=== PATIENT | female | born 1980 | race African-American/Black ===

== ENCOUNTER 2021-12-06 09:09 | Emergency (ER) | payer OTHER, SELFPAY ==
[2021-12-06 09:22] VITALS: BP 154/117; PULSE 100; RESP 19; TEMP 36.6; O2SAT 100; BMI 34.5
[2021-12-06] MEDS: Ondansetron ODT 4 MG TAB.RAPDIS TRANSLINGU (10:24)
--- NOTE | 2021-12-06 10:30 | PC.NURSE ---
triage note : patient reports asthma as medical dx. psych dx: ptsd, WING, bipolar, disassociative identity d/o, reports pfizer vaccine hx, reports no menses X 5yrs (IUD), reports +hx of self harming (and soon after interview requested band aid to cover area where she had been scratching. reports three identified voices she hears reports no command hallucinations (as far as content)
[2021-12-06 10:37] VITALS: BP 172/100; PULSE 96; RESP 18; O2SAT 100
[2021-12-06 10:45] LABS: MANUAL DIFF FLAG NO
[2021-12-06 10:47] LABS: Basophils Percent Auto 0.4 % (0-2); Eosinophils Absolute Auto 0.2 X10*3/uL (0.0-0.4); Eosinophils Percent Auto 1.9 % (0-4); Hematocrit 39.1 % (37.0-47.0); Hemoglobin 13.2 g/dl (12.0-16.0); Imm Gran Abs Auto 0.04 X10*3/uL (0.00-0.03); Imm Gran Pct Auto 0.5 % (0.0-0.4); Lymphocytes Absolute Auto 2.8 X10*3/uL (1.2-4.9); Lymphocytes Percent Auto 34.5 % (20-40); Mean Corpuscular HGB Conc 33.8 g/dl (31.0-35.0); Mean Corpuscular Hemoglobin 30.5 pg (27.0-33.0); Mean Corpuscular Volume 90.3 fL (80.0-98.0); Mean Platelet Volume 9.3 fL (9.4-12.3); Monocytes Absolute Auto 0.5 X10*3/uL (0.1-1.2); Monocytes Percent Auto 5.6 % (2-11); Neutrophils Absolute Auto 4.6 x10*3/uL (2.0-8.3); Neutrophils Percent Auto 57.1 % (45-73); Platelet Count 351 X10*3/uL (160-400); Red Blood Count 4.33 X10*6/uL (4.20-5.50)
[2021-12-06 10:47] LABS: Appearance Urine CLEAR; Color Urine STRAW; Glucose Urine UA NEG (NEG); Leukocyte Esterase Urine NEG (NEG); Nitrite Urine NEG (NEG); Specific Gravity - Urine 1.015 (1.005-1.025); UACC Culture Trigger NO; Urine Blood 2+ (NEG); Urine Ketones NEG (NEG); Urine Protein NEG (NEG-TRACE)
[2021-12-06 10:48] LABS: UPreg QC Valid YES; Urine Pregnancy NEGATIVE (NEGATIVE)
[2021-12-06 10:59] LABS: COVID-19 Test Negative (Negative)
[2021-12-06 11:10] LABS: Mucus Urine TRACE /LPF; Squamous Epithelial Cell Urine 4+ /LPF; WBC Urine 0 /HPF (0-4)
[2021-12-06 11:12] LABS: Alanine Aminotransferase 17 U/L (0-31); Albumin Level 4.5 g/dL (3.5-5.0); Alkaline Phosphatase 112 U/L (39-117); Anion Gap 12 (12-20); Aspartate Amino Transferase 17 U/L (5-31); Bilirubin Total 0.2 mg/dL (0.0-1.0); Blood Urea Nitrogen 10 mg/dL (9-16); Carbon Dioxide 27 mmol/L (22-29); Chloride 105 mmol/L (96-108); Creatinine Clr Calc Pharmacy 101.2; Estimated Glomerular Filt Rate > 60; Glucose Fasting 110 mg/dL (60-99); Potassium 4.2 mmol/L (3.3-5.1); Sodium 140 mmol/L (135-145); Total Protein 7.7 g/dL (6.5-8.0)
[2021-12-06 11:13] LABS: Amphetamine Screen Urine Not Detected (Not Detect); Barbiturates, Urine Not Detected (Not Detect); Benzodiazepines Screen Urine POSITIVE (Not Detect); Cannabinoid Screen Urine Not Detected (Not Detect); Cocaine Screen Urine Not Detected (Not Detect); Fentanyl, urine Not Detected (Not Detect); Opiate Screen Urine Not Detected (Not Detect); Phencyclidine Screen Urine Not Detected (Not Detect)
--- NOTE | 2021-12-06 11:44 | ED.GENADULT ---
HPI - General Adult General Chief complaint: Psychiatric Symptoms Stated complaint: vomiting crisis Time Seen by Provider: 12/06/21 09:56 Source: patient Mode of arrival: ambulatory Limitations: no limitations History of Present Illness HPI narrative: Patient is a 41 year old female presenting to the emergency department today with nausea, vomiting, and hearing voices. Patient states that she believes the nausea and vomiting is secondary to stress because she recently had a psych medication change. Patient denies feeling suicidal but states she does not feel safe. Patient denies any dizziness, lightheadedness, abdominal pain, fever, chills, blurry vision, double vision, loss of vision, chest pain, difficulty breathing, shortness of breath, back pain, night sweats, pain with urination, increased urinary frequency, increased urinary urgency, blood in her urine or stool, syncope or a near syncopal episode, recent trauma or falls, bowel incontinence, bladder incontinence, bowel retention, bladder retention, or any other complaints at this time. Onset (ago): day(s) Relieving factors: none Exacerbating factors: other (stress and anxiety) Associated symptoms: nausea/vomiting Related Data Home Medications Medication Instructions Recorded Confirmed diazepam 5 mg tablet 5 mg PO BID PRN 04/30/21 gabapentin 250 mg/5 mL (5 mL) oral 300 mg PO BID 04/30/21 solution lamotrigine 200 mg tablet 200 mg PO DAILY 04/30/21 melatonin 5 mg capsule 5 mg PO DAILY cap 04/30/21 olanzapine 5 mg tablet 5 mg PO BEDTIME 04/30/21 prazosin 2 mg capsule 2 mg PO BEDTIME 04/30/21 prazosin 5 mg capsule 5 mg PO BEDTIME 04/30/21 quetiapine 400 mg tablet 400 mg PO BID 04/30/21 sertraline 100 mg tablet 100 mg PO DAILY 04/30/21 Allergies Allergy/AdvReac Type Severity Reaction Status Date / Time aspirin AdvReac Unknown Hives Verified 04/30/21 09:23 Review of Systems Constitutional: Constitutional: Reports no additional constitutional complaints, Denies chills, Denies fever(s) and Denies night sweats Eyes: Eyes: Reports no additional eye complaints, Denies blurry vision, Denies change in vision, Denies diplopia, Denies eye discharge, Denies loss of vision and Denies eye pain ENT: Denies dizziness Cardiovascular: Cardiovascular: Reports no additional cardiovascular complaints, Denies chest pain, Denies lightheadedness, Denies Loss of Consciousness and Denies dyspnea Respiratory: Respiratory: Reports no additional respiratory complaints and Denies dyspnea Gastrointestinal: Gastrointestinal: Reports no additional gastrointestinal complaints, Denies abdominal pain, Denies melena, Denies hematochezia, Denies change in bowel habits, Denies change in stool character, Reports nausea and Reports vomiting Genitourinary: Genitourinary: Denies hematuria, Denies urinary frequency, Denies dysuria, Denies urinary incontinence, Denies urinary hesitancy and Denies urinary urgency Musculoskeletal: Musculoskeletal: Reports no additional musculoskeletal complaints, Denies numbness and Denies tingling Neurologic: Denies dizziness, Denies loss of vision, Denies numbness and Denies tingling Psychiatric: Psychiatric: Reports no additional psychiatric complaints and Reports anxiety Endocrine: Endocrine: Reports no additional endocrine complaints Hematologic/Lymphatic: Hematologic/Lymphatic: Reports no additional hematologic/lymphatic complaints Allergic/Immunologic: Allergic/Immunologic: Reports no additional allergic/immunologic complaints PMFSH Past Medical History Attestation statement: The following information was validated with the patient. Source: old records reviewed Medical History Anxiety Bipolar 1 disorder Borderline schizophrenia Dissociative identity disorder PTSD (post-traumatic stress disorder) Surgical History Hx of carpal tunnel repair Hx of thyroidectomy Family History Family History Mother Stroke Heart disease Hypertension Breast cancer Heart attack Father Lung disease Sister Gastric bypass status for obesity Heart attack Hypertension Sleep apnea Sister FHx: mental illness Son No problems noted. Son No problems noted. Son No problems noted. Social History Social History Alcohol intake: former Tobacco use type: Cigarette Cigarette Packs Per Day: 1 Advance Directives: No Advance Directives Information Provided: No Patient : No Physical Exam ED Vital Signs: Vital Signs - 24 hr 12/06/21 09:22 12/06/21 10:37 Temperature 98 F Pulse Rate 100 96 Respiratory Rate 19 18 Blood Pressure 154/117 H 172/100 H Pulse Oximetry 100 100 BMI result Body Mass Index 34.5 Const General: cooperative, no acute distress, alert and awake Nutritional Appearance: well nourished Orientation/consciousness: patient oriented x3 Limitations: no limitations HENMT Head: Yes normal to inspection and Yes atraumatic Ears: hearing grossly normal bilaterally and external ears normal General nose exam: Normal external nose present, no nasal discharge noted and no epistaxis Face and sinus: Yes normal facial exam, No abrasion and No laceration Mouth: Normal oral and palatal mucosa present, no drooling and no muffled voice Eyes General: appearance normal, both eyes and all related structures Periorbital: periorbital findings normal Eyelids: Yes eyelids normal Conjunctivae: conjunctivae normal Pupils: Equal, round and reactive pupils present EOM: EOMs intact bilaterally Neck Neck: Yes normal visual inspection, Yes full ROM and Yes no lymphadenopathy Chest Chest palpation & inspection: normal inspection of the chest Resp Effort & Inspection: normal respiratory effort and able to speak in complete sentences GI Inspection: Yes normal to inspection Neuro General: patient oriented x3 and moves all extremities Cranial nerves: Yes Equal, round and reactive pupils present Cognition (Neuro): normal cognition Motor exam (neuro): 5/5 motor strength present throughout Sensory Exam: Normal double simultaneous stimulation for sensation Coordination: [id number] test normal Extrem General: Yes normal to inspection, Yes full ROM and Yes capillary refill normal Psych Appearance: grossly normal Mental Status: mental status grossly normal Affect: Anxious affect present Attitude: cooperative Thought process: Normal thought process present Thought content: Normal thought content present Insight: Good insight present (Psych) Course Consultations Consultation #1: Spoke to [facility] who recommended the patient be discharged with close follow up tomorrow with [facility]. She states the patient is now stating she feels safe at home, lives with her sister, and has no acess to sharp objects at home. Time: 14:11 Medical Decision Making [facility] Narrative Medical decision making narrative: Patient is a 41 year old female presenting to the emergency department today with nausea and vomiting secondary to anxiety. Patient's physical exam was unremarkable. Patient's blood work was unremarkable. I explained my physical exam findings as well as all test results to the patient. I answered all questions asked by the patient. Patient received ODT Zofran which she stated helped her symptoms significantly. Patient was seen by [facility] who recommended the patient be discharged and follow up on an outpatient basis. I stressed the importance of the patient taking her medication as prescribed. I stressed the importance of the patient following up with her primary care provider. I stressed the importance of the patient returning to the emergency department immediately if her symptoms were to worsen or if she were to develop any dizziness, shortness of breath, difficulty breathing, chest pain, blurry vision, loss of vision, nausea, vomiting, abdominal pain, fever, chills, back pain, or any other complaints. Patient verbalized agreement and understanding with this treatment plan and discharge. Differential Diagnosis Differential Diagnosis: Nausea, vomiting, anxiety, panic attack Medical Records Medical records reviewed: Yes I reviewed the patient's medical records. Lab Data Lab results reviewed: Yes I reviewed the patient's lab results. Result diagrams: 12/06/21 10:40 12/06/21 10:39 Labs: Lab Results 12/06/21 12/06/21 12/06/21 Range/Units 10:30 10:30 10:31 WBC (4.8-10.8) X10*3/uL RBC (4.20-5.50) X10*6/uL Hgb (12.0-16.0) g/dl Hct (37.0-47.0) % MCV (80.0-98.0) fL MCH (27.0-33.0) pg MCHC (31.0-35.0) g/dl RDW (11.0-16.0) % Plt Count (160-400) X10*3/uL MPV (9.4-12.3) fL Immature Gran % (Auto) (0.0-0.4) % Neut % (Auto) (45-73) % Lymph % (Auto) (20-40) % [place] % (Auto) (2-11) % Eos % (Auto) (0-4) % Baso % (Auto) (0-2) % Lymph # (Auto) (1.2-4.9) X10*3/uL [place] # (Auto) (0.1-1.2) X10*3/uL Eos # (Auto) (0.0-0.4) X10*3/uL Baso # (Auto) (0.0-0.2) X10*3/uL Abs Immat Gran (auto) (0.00-0.03) X10*3/uL Absolute Neuts (auto) (2.0-8.3) x10*3/uL Absolute Nucleated RBC (0.0-0.012) X10*3/uL Nucleated RBC % (auto) (0.0-0.2) /100WBC Sodium (135-145) mmol/L Potassium (3.3-5.1) mmol/L Chloride (96-108) mmol/L Carbon Dioxide (22-29) mmol/L Anion Gap (12-20) BUN (9-16) mg/dL Creatinine (0.5-1.4) mg/dL Estim Creat Clear Calc Estimated GFR Fasting Glucose (60-99) mg/dL Calcium (8.4-10.2) mg/dL Magnesium (1.6-2.6) mg/dL Total Bilirubin (0.0-1.0) mg/dL AST (5-31) U/L ALT (0-31) U/L Alkaline Phosphatase (39-117) U/L Total Protein (6.5-8.0) g/dL Albumin (3.5-5.0) g/dL Urine Color STRAW Urine Appearance CLEAR Urine pH 6.0 (5.0-8.0) Ur Specific Severy 1.015 (1.005-1.025) Urine Protein NEG (NEG-TRACE) MG/DL Urine Glucose (UA) NEG (NEG) MG/DL Urine Ketones NEG (NEG) MG/DL Urine Blood 2+ H (NEG) Urine Nitrite NEG (NEG) Ur Leukocyte Esterase NEG (NEG) Urine RBC 5-9 H (0) /HPF Urine WBC 0 (0-4) /HPF Ur Squamous Epith Cells 4+ /LPF Urine Bacteria NONE /LPF Urine Mucus TRACE /LPF Urine Test NEGATIVE (NEGATIVE) Urine Opiates Screen (Not Detect) Urine Fentanyl Screen (Not Detect) Ur Barbiturates Screen (Not Detect) Ur Phencyclidine Scrn (Not Detect) Ur Amphetamines Screen (Not Detect) U Benzodiazepines Scrn (Not Detect) Urine Cocaine Screen (Not Detect) U Marijuana (THC) Screen (Not Detect) COVID-19 ([place]) Negative (Negative) COVID-19 Clin Com See Note 12/06/21 12/06/21 12/06/21 Range/Units 10:31 10:39 10:40 WBC 8.0 (4.8-10.8) X10*3/uL RBC 4.33 (4.20-5.50) X10*6/uL Hgb 13.2 (12.0-16.0) g/dl Hct 39.1 (37.0-47.0) % MCV 90.3 (80.0-98.0) fL MCH 30.5 (27.0-33.0) pg MCHC 33.8 (31.0-35.0) g/dl RDW 13.0 (11.0-16.0) % Plt Count 351 (160-400) X10*3/uL MPV 9.3 L (9.4-12.3) fL Immature Gran % (Auto) 0.5 H (0.0-0.4) % Neut % (Auto) 57.1 (45-73) % Lymph % (Auto) 34.5 (20-40) % [place] % (Auto) 5.6 (2-11) % Eos % (Auto) 1.9 (0-4) % Baso % (Auto) 0.4 (0-2) % Lymph # (Auto) 2.8 (1.2-4.9) X10*3/uL [place] # (Auto) 0.5 (0.1-1.2) X10*3/uL Eos # (Auto) 0.2 (0.0-0.4) X10*3/uL Baso # (Auto) 0.0 (0.0-0.2) X10*3/uL Abs Immat Gran (auto) 0.04 H (0.00-0.03) X10*3/uL Absolute Neuts (auto) 4.6 (2.0-8.3) x10*3/uL Absolute Nucleated RBC 0.000 (0.0-0.012) X10*3/uL Nucleated RBC % (auto) 0.0 (0.0-0.2) /100WBC Sodium 140 (135-145) mmol/L Potassium 4.2 (3.3-5.1) mmol/L Chloride 105 (96-108) mmol/L Carbon Dioxide 27 (22-29) mmol/L Anion Gap 12 (12-20) BUN 10 (9-16) mg/dL Creatinine 0.88 (0.5-1.4) mg/dL Estim Creat Clear Calc 101.2 Estimated GFR > 60 Fasting Glucose 110 H (60-99) mg/dL Calcium 10.0 (8.4-10.2) mg/dL Magnesium 2.0 (1.6-2.6) mg/dL Total Bilirubin 0.2 (0.0-1.0) mg/dL AST 17 (5-31) U/L ALT 17 (0-31) U/L Alkaline Phosphatase 112 (39-117) U/L Total Protein 7.7 (6.5-8.0) g/dL Albumin 4.5 (3.5-5.0) g/dL Urine Color Urine Appearance Urine pH (5.0-8.0) Ur Specific Severy (1.005-1.025) Urine Protein (NEG-TRACE) MG/DL Urine Glucose (UA) (NEG) MG/DL Urine Ketones (NEG) MG/DL Urine Blood (NEG) Urine Nitrite (NEG) Ur Leukocyte Esterase (NEG) Urine RBC (0) /HPF Urine WBC (0-4) /HPF Ur Squamous Epith Cells /LPF Urine Bacteria /LPF Urine Mucus /LPF Urine Test (NEGATIVE) Urine Opiates Screen Not Detected (Not Detect) Urine Fentanyl Screen Not Detected (Not Detect) Ur Barbiturates Screen Not Detected (Not Detect) Ur Phencyclidine Scrn Not Detected (Not Detect) Ur Amphetamines Screen Not Detected (Not Detect) U Benzodiazepines Scrn POSITIVE H (Not Detect) Urine Cocaine Screen Not Detected (Not Detect) U Marijuana (THC) Screen Not Detected (Not Detect) COVID-19 ([place]) (Negative) COVID-19 Clin Com Discharge Plan Discharge Clinical Impression: Bipolar disorder, Depression, Dissocial personality disorder Patient Disposition: Home, Self-Care Referrals: Ofe Hatfield MD [Primary Care Provider] - 2 days Interventions: ED Discharge Assessment Last Done: 12/06/21 14:25 Discharge Date/Time: 12/06/21 14:26 Print Language: Setswana
[2021-12-06] MEDS: Acetaminophen 325 MG TABLET 650 MG PO (12:02)
== END 2021-12-06 14:26 | disposition home or self-care (01) ==
PROVIDERS: Physician Assistant Medical; Emergency Provider Emergency Medicine Emergency Medical Services; PCP Internal Medicine
DX: F31.9 Bipolar disorder, unspecified (principal); F44.81 Dissociative identity disorder; Z20.822 Contact with and (suspected) exposure to COVID-19; R11.2 Nausea with vomiting, unspecified; F41.9 Anxiety disorder, unspecified; F21 Schizotypal disorder; F43.10 Post-traumatic stress disorder, unspecified; Z79.899 Other long term (current) drug therapy
CPT/HCPCS: 36415; 80053; 80307; 81001; 81025; 83735; 85025; 87635; 99284

== ENCOUNTER → 2023-01-05 10:49 | Outpatient (BNVA) | payer OTHER, SELFPAY | PROVIDERS: PCP Internal Medicine; Visit Provider Nurse Practitioner Family | DX: G43.109 Migraine with aura, not intractable, without status migrainosus (principal); G24.3 Spasmodic torticollis; R20.2 Paresthesia of skin; M54.2 Cervicalgia; G47.9 Sleep disorder, unspecified | CPT/HCPCS: 99202 ==

== ENCOUNTER → 2023-01-25 10:52 | Outpatient (BNVA) | payer OTHER, SELFPAY | PROVIDERS: PCP Internal Medicine; Visit Provider Nurse Practitioner Family | DX: G43.109 Migraine with aura, not intractable, without status migrainosus (principal) | CPT/HCPCS: 99211 ==

== ENCOUNTER 2023-04-08 09:13 | Outpatient (REF) | payer SELFPAY ==
--- NOTE | 2023-04-08 | EMG_ITS ---
FINDINGS: Bilateral median and ulnar motor and sensory studies were performed. Bilateral radial sensory studies were performed and paraspinal muscles were tested with a needle. IMPRESSION: 1. Mild bilateral median neuropathy across carpal tunnel. 2. Mild bilateral ulnar neuropathy across cubital tunnel. MD BEKAH Carcamo/LOYD / [phone]
== END 2023-04-08 09:14 | disposition home or self-care (01) ==
LOC: HO.NEURO 09:13
PROVIDERS: PCP Internal Medicine; Visit Provider Nurse Practitioner Family
DX: M54.2 Cervicalgia (principal); R20.2 Paresthesia of skin; G24.3 Spasmodic torticollis
CPT/HCPCS: 95886; 95911

== ENCOUNTER 2023-07-21 09:27 | Outpatient (AMB) | payer OTHER, SELFPAY ==
[2023-07-21 09:29] VITALS: BP 144/90; BMI 33.0
--- NOTE | 2023-07-21 09:29 | A.OFFVIS_ITS ---
Intake Vital Signs 07/21/23 09:29 Height 5 ft 7 in Weight 211 lb BMI 33.0 BP 144/90 H Blood Pressure Location Rt brachial Position Sitting Intake Visit Reasons: 2m follow up migraine-Confirmed Intake Note: Patient presents for 2 month follow up. Patient states My headaches are still the same I have a headache now. I'm still not sleeping. Allergies aspirin Adverse Reaction (Unknown, Verified 07/21/23 09:32) Hives bee stings Allergy (Unknown, Uncoded 07/21/23 09:32) Unknown Medication List - Last Reconciled 07/21/23 by MIGUEL Willard acetaminophen 1,000 mg (2 x 500 mg) PO Q6H PRN 30 days amitriptyline 75 mg PO BEDTIME diazepam 5 mg PO BID PRN gabapentin 300 mg PO BID galcanezumab-gnlm (Emgality Pen) 120 mg subcut ONCE 28 days lamotrigine 200 mg PO BID methocarbamol 1,000 mg PO BID olanzapine 5 mg PO BEDTIME omeprazole 20 mg PO QAM prazosin 5 mg PO BEDTIME prazosin 25 mg PO BEDTIME quetiapine 400 mg PO BID riboflavin (vitamin B2) 400 mg PO DAILY 30 days rizatriptan 0 mg PO sumatriptan succinate 50 - 100 mg orally at onset of headache, may repeat in 2 hrs PRN; max 2 tabs per day or 4 tabs/week (may take with Tylenol) 30 days trazodone 100 mg PO BEDTIME PRN HPI HPI Comments History of Present Illness Details 43-yr-old female presents for f/u visit. Pt reports that despite starting and being consistent w/ Emgality, she continues to have never daily migraine headaches. Headaches- Left or right sided- Pounding, throbbing, aching. Usually a/w blurry vision, vertical diplopia (w/wo headache), Photophobia, phonophobia, nausea, some allodynia, dizziness (tunnel vision), brain fog, hands and feet numbness tingling and right handed jumping/jerking (can occur w/wo headaches but worse w/ headache), agitation if more severe. No autonomic or focal weakness. Sumatriptan was unhelpful. Today, notes she has tried Rizatriptan prior but this did not help. She continues to have sleep difficulties- difficulty falling asleep, staying asleep, sleep eating, sleep talking, sleep paralysis. Was started on Trazodone 100mg qhs which has not helepd sleep (has not affected headaches either) She continues to have BUE hand tingling. BUE EMG/NCS was c/w mild BUE carpal tunnel and ulnar neuropathies. She does have a hx of carpal tunnel repair through [facility]. 04/08/23, BUE EMG/NCS IMPRESSION: 1. Mild bilateral median neuropathy acro ss carpal tunnel. 2. Mild bilateral ulnar neuropathy acros s cubital tunnel. [facility] Medical History Anemia Anxiety Asthma Bipolar 1 disorder Borderline schizophrenia Dissociative identity disorder HLD (hyperlipidemia) PTSD (post-traumatic stress disorder) Surgical History Hx of carpal tunnel repair Hx of thyroidectomy Family History Mother Stroke Heart disease Hypertension Breast cancer Heart attack CAD (coronary artery disease) Hyperlipidemia Father Lung disease Hypertension Hyperlipidemia COPD (chronic obstructive pulmonary disease) Sister Gastric bypass status for obesity Heart attack Hypertension Sleep apnea Sister FHx: mental illness Son No problems noted. Son No problems noted. Son No problems noted. Brother Diabetes Social History Alcohol intake: former Patient Tobacco Use Status: Current everyday Tobacco user Tobacco use type: Cigarette Cigarette Packs Per Day: 1 Review of Systems Const All systems reviewed & are unremarkable except as noted in HPI and below Physical Exam Vital Signs: Last Vital Signs BP 144/90 H 07/21/23 09:29 BMI result Body Mass Index 33.0 Const General: cooperative and no acute distress Orientation/consciousness: patient oriented x3 HEENT Head: Yes normocephalic Resp Effort & Inspection: normal respiratory effort and able to speak in complete sentences Neuro General: patient oriented x3, gait normal and CN's II-XI intact bilaterally Cognition (Neuro): normal cognition Motor exam (neuro): 5/5 motor strength present throughout Psych Appearance: grossly normal Mental Status: mental status grossly normal Speech and movement: Normal speech and movement present Affect: normal affect Attitude: cooperative Thought process: Normal thought process present Thought content: Normal thought content present Insight: Good insight present (Psych) Judgement: Good judgement present (Psych) Assessment & Plan Assessment & Plan (1) Parasomnia: Code(s): G47.50 - Parasomnia, unspecified (2) Excessive daytime sleepiness: Code(s): G47.19 - Other hypersomnia (3) Snoring: Code(s): R06.83 - Snoring (4) Sleep walking and eating: Code(s): F51.3 - Sleepwalking [somnambulism] (5) Sleep difficulties: Code(s): G47.9 - Sleep disorder, unspecified (6) Paresthesias: Comment: BUE and BLE Code(s): R20.2 - Paresthesia of skin (7) Bilateral carpal tunnel syndrome: Code(s): G56.03 - Carpal tunnel syndrome, bilateral upper limbs (8) Ulnar neuropathy of both upper extremities: Code(s): G56.23 - Lesion of ulnar nerve, bilateral upper limbs (9) Chronic migraine without aura: Code(s): G43.709 - Chronic migraine without aura, not intractable, without status migrainosus Plan Reviewed BUE EMG/NCS- mild BUE carpaul tunnel and ulnar neuropathy. Will refer pt back to [facility]. L-spine X-ray- note done yet- pt to do when able. Monitor tremor/blinking. Future considerations: BLE EMG/NCS, further l-spine work-up. ? For sleep difficulties- Pt advised to undergo HST to assess for sleep apnea. Would hold Trazodone- not effective. Start Topiramate 25-50mg qhs- may help sleep, sleep eating as well. She may benefit from listening to CBTi resources such as the [employer] podcast. ? For acute headache treatment: Stop Sumatriptan 100mg tab- ineffective. Trial Zomig 5mg prn. Previous acute migraine medication trials: Excedrin- ineffective. Sumatriptan- ineffective. Rizatriptan- ineffective. Acute migraine medication contraindications: None at this time ? For headache prevention medication: Riboflavin 400mg qam Magnesium 400mg qhs Continue Emgality 120mg sc q month for now. Start Botox for chronic migraine prevention- may benefit cercival dystonia s/s as well. Continue Amitriptyline- would not increase further d/t Bipolar I dx. Once Botox started, stop Emgalitybh\ Previous migraine prevention medication trials: Topiramate- ineffective for migraine. Migraine prevention medication contraindications: BBs d/t dx of asthma. Other anti-HTN agents as pt is on high dose Prazosin. ? f/u in 3-4 months or sooner. Orders: Orders RT home sleep study Today F51.3 - Sleepwalking [somnambulism], G47.19 - Other hypersomnia, G47.50 - Parasomnia, unspecified, G47.9 - Sleep disorder, unspecified, R06.83 - Snoring Referrals Orthopedics Referral G56.03 - Carpal tunnel syndrome, bilateral upper limbs, G56.23 - Lesion of ulnar nerve, bilateral upper limbs, R20.2 - Paresthesia of skin Medications: New zolmitriptan (Zomig) take 1 tab at onset of headache; if no relief, may repeat 1 tab after at least 2 hrs; max = 2 tabs/24 hrs PO 30 days 12 tabs 6RF topiramate 25 - 50 mg (1 - 2 x 25 mg) PO BEDTIME 30 days 60 tabs 3RF onabotulinumtoxinA (Botox) inject 155 units IM across forehead, scalp, and neck 200 units IM ONCE 12 weeks 1 ea 3RF G43.709 - Chronic migraine without aura, not intractable, without status migrainosus Coding Level of Care Code Est Pt Level 4 (05077) Diagnoses Parasomnia G47.50 Excessive daytime sleepiness G47.19 Snoring R06.83 Sleep walking and eating F51.3 Sleep difficulties G47.9 Paresthesias R20.2 Bilateral carpal tunnel syndrome G56.03 Ulnar neuropathy of both upper extremities G56.23 Chronic migraine without aura G43.709
== END 2023-07-21 10:16 | disposition home or self-care (01) ==
PROVIDERS: Visit Provider Nurse Practitioner Family
DX: G47.50 Parasomnia, unspecified (principal); G47.19 Other hypersomnia; R06.83 Snoring; F51.3 Sleepwalking [somnambulism]; G47.9 Sleep disorder, unspecified; R20.2 Paresthesia of skin; G56.03 Carpal tunnel syndrome, bilateral upper limbs; G56.23 Lesion of ulnar nerve, bilateral upper limbs; G43.709 Chronic migraine without aura, not intractable, without status migrainosus
CPT/HCPCS: 99214

== ENCOUNTER → 2023-07-21 09:27 | Outpatient (BNVA) | payer OTHER, SELFPAY | PROVIDERS: Visit Provider Nurse Practitioner Family | DX: G43.709 Chronic migraine without aura, not intractable, without status migrainosus (principal); G56.03 Carpal tunnel syndrome, bilateral upper limbs; G56.23 Lesion of ulnar nerve, bilateral upper limbs; G47.9 Sleep disorder, unspecified; G47.50 Parasomnia, unspecified; G47.19 Other hypersomnia; R06.83 Snoring; F51.3 Sleepwalking [somnambulism]; R20.2 Paresthesia of skin | CPT/HCPCS: 99212 ==

== ENCOUNTER 2023-07-27 17:31 | Emergency (ER) | payer SELFPAY ==
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
--- NOTE | ~2023-07-27 | XR_ITS ---
EXAMINATION: XR CHEST 2 VIEWS CLINICAL INFORMATION: Superficial laceration; anterior chest wall pain; question pneumothorax. COMPARISON: None. TECHNIQUE: Frontal and lateral views of the chest were obtained. FINDINGS: The heart, great vessels, pulmonary vasculature and mediastinum are normal. The lungs show no focal infiltrate, effusion or pneumothorax. There is no acute osseous abnormality. XR/XR chest 2V IMPRESSION: No active cardiopulmonary disease. No pneumothorax is seen.
[2023-07-27 18:07] VITALS: BP 190/100; PULSE 100; RESP 20; TEMP 36.7; O2SAT 100; BMI 30.5
--- NOTE | 2023-07-27 18:23 | PC.NURSE ---
pts brother in law that is at large is named wendie henry- description of him has been given to [facility]- pt is a male, tall with brown hair and a tattoo saying dean across his forhead.
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
--- OUTSIDE RECORDS SUMMARY | 2023-07-27 18:54 | XMS_ITS | Continuity of Care Document ---
Author Name Unknown Organization [facility] Adult Address [address] [place] [address]- Care Team Providers Care Rn Baby Name Role Phone Ngozi Brannon NP Primary Care Physician Encounter [facility] Date(s): 02/03/23 - 02/10/23 [facility] [address] [place] [address]- Encounter Diagnosis Bipolar disorder(Discharge Diagnosis) - 02/03/23 Insomnia(Discharge Diagnosis) - 02/03/23 WING (generalized anxiety disorder)(Discharge Diagnosis) - 02/03/23 Migraine headache(Discharge Diagnosis) - 02/03/23 Dyslipidemia(Discharge Diagnosis) - 02/03/23 Personality disorder(Discharge Diagnosis) - 02/03/23 PTSD (post-traumatic stress disorder)(Discharge Diagnosis) - 02/03/23 Asthma(Discharge Diagnosis) - 02/03/23 Major depression, recurrent, chronic(Discharge Diagnosis) - 02/03/23 Attending Physician: Ngozi Brannon NP Allergies, Adverse Reactions, Alerts Substance Reaction Severity Status aspirin Rash Active Bee Stings Active Immunizations Given and Recorded Vaccine Date Status Refusal Reason [id number] 12y+ bivalent booster vax 09/09/22 Recorded SARS-CoV-2 (COVID-19) mRNA BNT-162b2 vac 03/24/21 Recorded SARS-CoV-2 (COVID-19) mRNA BNT-162b2 vac 03/03/21 Recorded pneumococcal 23-valent vaccine 12/27/18 Given tetanus/diphtheria/pertussis, acel(Tdap) 03/28/18 Given influenza virus vaccine, inactivated 1 07/15/10 Gi dale Diphth-Tetanus Toxoids Adsorbed(oldterm) 04/11/08 Given Hepatitis B Vaccine (old term) 2 04/11/08 Given 1Admin Note: VIS8/11/09 2Admin Note: #1 Medications Airborne Gummies Daily, 0 Refills, Maintenance, 02/21/21 10:58:00 EDT, Partial fill upon patient request if the prescription is for a schedule II opioid drug. Start Date: 02/21/21 Status: Ordered amitriptyline 75 mg oral tablet 1 tablet, By Mouth, Daily at bedtime, # 30 tablet, 3 Refills, Maintenance, 10/06/22 15:16:00 EST, [id number], 171, cm, 08/21/22 11:00:00 EDT, Height Start Date: 10/06/22 Status: Ordered atorvastatin 20 mg oral tablet 1 tablet = 20 mg, By Mouth, Daily, # 90 tablet, 1 Refills, Maintenance, 10/06/22 14:37:00 EST, Tablet, [facility]/pharmacy #[id number], Partial fill upon patient request if the prescription is for a schedule II opioid drug., 171, cm, 08/21/22 11:00:00 EDT, Height Start Date: 10/06/22 Status: Ordered budesonide-formoterol 160 mcg-4.5 mcg/inh inhalation aerosol with adapter 2, puffs, Inhalation, 2 times a day, in the morning and the evening use with spacer chamber rinse mouth and throat after use, # 10.2 Gm, Refills 6, Tot. Refills 6, Maintenance, 11/13/20 13:02:00 EST,Aerosol, Route to Pharmacy Electronically, NCPDP_... Start Date: 11/13/20 Status: Ordered Childrens Chewable Multivitamins 1 tablet, By Mouth, Daily, 0 Refills, Maintenance Start Date: 10/16/10 Status: Ordered Daily-Anju Weight Control By Mouth, Daily, 0 Refills, Maintenance, 02/21/21 10:58:00 EDT, Partial fill upon patient request if the prescription is for a schedule II opioid drug. Start Date: 02/21/21 Status: Ordered diazepam 5 mg oral tablet 5 mg, 1, tablet, By Mouth, 3 times a day, PRN, , # 90 tablet, Refills 0, Tot. Refills 0, Maintenance, as needed for anxiety, 12/27/18 13:36:03 EST, Print Requisition Start Date: 12/27/18 Stop Date: 01/26/19 Status: Ordered elderberry 0 Refills, Maintenance, 03/13/21 15:09:00 EDT, Partial fill upon patient request if the prescription is for a schedule II opioid drug. Start Date: 03/13/21 Status: Ordered Emgality Prefilled Pen 120 mg/mL subcutaneous solution = 120 mg, Subcutaneous Injection, Once, Maintenance Dose, # 2 kit, 5 Refills, Maintenance, 02/03/2313:41:00 EDT, Partial fill upon patient request if the prescription is for a schedule II opioid drug. Start Date: 02/03/23 Status: Ordered EpiPen 2-Juan Jose 0.3 mg injectable kit = 0.3 mg, Intramuscular, Once, may repeat if necessary, # 2 each, 1 Refills, Soft Stop, 05/15/20 10:44:00 EDT, [facility] Rx #[id number], 171, cm, 05/09/20 14:05:00 EDT, Height Start Date: 05/15/20 Status: Ordered eszopiclone 2 mg oral tablet TAKE 1 TABLET BY MOUTH EVERYDAY AT BEDTIME Start Date: 02/03/23 Status: Ordered Fish Oil By Mouth, 0 Refills, Maintenance, 03/13/21 15:09:00 EDT, Partial fill upon patient request if the prescription is for a schedule II opioid drug. Start Date: 03/13/21 Status: Ordered gabapentin 400 mg oral capsule TK 1 C PO BID Prescribed by ANDRIA Carias Start Date: 12/28/19 Status: Ordered lamotrigine 150 mg oral tablet TAKE 1 TABLET BY MOUTH EVERY DAY Start Date: 02/21/21 Status: Ordered Lexapro 20 mg oral tablet 1 tablet = 20 mg, By Mouth, Daily, # 90 tablet, 0 Refills, Maintenance, 02/04/22 12:48:00 EDT, Tablet, Partial fill upon patient request if the prescription is for a schedule II opioid drug. Start Date: 02/04/22 Status: Ordered MELATONIN 5 MG TABLET TAKE 2 TABLETS BY MOUTH AT BEDTIME Start Date: 02/21/21 Status: Ordered naproxen 500 mg oral tablet 1 tablet, By Mouth, 2 times a day, # 60 tablet, 0 Refills, Maintenance, 12/04/22 16:01:00 EST, [id number], 171, cm, 08/21/22 11:00:00 EDT, Height Start Date: 12/04/22 Stop Date: 01/03/23 Status: Ordered Nebulizer/Compressor See Instructions, # 1 each, Maintenance, Dx: Asthma (J45.909) Use with albuterol solution, 03/11/2014:50:00 EDT, Supply Start Date: 03/11/20 Status: Ordered olanzapine 20 mg oral tablet TAKE 2 TABLETS BY MOUTH EVERY DAY AT BEDTIME Start Date: 02/21/21 Status: Ordered omeprazole 20 mg oral enteric coated capsule See Instructions, TAKE 1 CAPSULE BY MOUTH EVERY DAY 1/2 TO 1 HOUR PRIOR TO BREAKFAST, # 90 capsule,0 Refills, Maintenance, 11/20/22 8:28:00 EST, [facility], 171, cm, 08/21/22 11:00:00 EDT, Height Start Date: 11/20/22 Status: Ordered prazosin 1 mg oral capsule TAKE 1 CAPSULE BY MOUTH EVERYDAY AT BEDTIME Start Date: 02/21/21 Status: Ordered prazosin 2 mg oral capsule 1 capsule = 2 mg, By Mouth, 2 times a day, # 180 capsule, 1 Refills, Maintenance, 02/23/19 10:04:25EDT, Capsule Start Date: 02/23/19 Stop Date: 08/22/19 Status: Ordered ProAir HFA 90 mcg/inh inhalation aerosol with adapter 2, puffs, Inhalation, Every 4 hours, PRN, # 8.5 each, Refills 5, Route to Pharmacy Electronically, [id number], [id number], 171, cm, 03/09/22 12:46:00 EDT, Height, 105.5, kg, 08/30/20 8:21:00 EST, Dry Weight Start Date: 03/14/22 Status: Ordered QUEtiapine 400 mg oral tablet, extended release 400 mg, 1, tablet, By Mouth, Daily in PM, do not crush or chew, # 90 tablet, Refills 0, Tot. Refills 0, Maintenance, 04/17/19 14:05:31 EDT, Route to Pharmacy Electronically, NCPDP_[id number], [facility] Rx #[id number] Start Date: 04/17/19 Stop Date: 07/16/19 Status: Ordered rizatriptan 10 mg oral tablet See Instructions, TAKE 1 TABLET BY MOUTH ONCE NEEDED FOR MIGRAINE. MAY REPEAT IN 2 HOURS IF MIGRAINE PERSISTS, # 12 tablet, 1 Refills, Maintenance, 11/20/22 8:28:00 EST, [facility], 171, cm, 08/21/22 11:00:00 EDT, Height Start Date: 11/20/22 Status: Ordered traZODone 100 mg oral tablet 1, tablet, By Mouth, 2 times a day, # 180 tablet, Refills 1, Route to Pharmacy Electronically, [facility], 171, cm, 03/09/22 12:46:00 EDT, Height, 105.5, kg, 08/30/20 8:21:00 EST, Dry Weight Start Date: 04/08/22 Status: Ordered Vitamin C By Mouth, Daily, 0 Refills, Maintenance, 02/21/21 10:57:00 EDT, Partial fill upon patient request if the prescription is for a schedule II opioid drug. Start Date: 02/21/21 Status: Ordered Vitamin E By Mouth, Daily, 0 Refills, Maintenance, 02/21/21 10:57:00 EDT, Partial fill upon patient request if the prescription is for a schedule II opioid drug. Start Date: 02/21/21 Status: Ordered Problem List Condition Confirmation Course Effective Dates Status H ealth Status Informant Anemia Confirmed Active Anxiety Confirmed Active Asthma Confirmed Active Bipolar disorder Confirmed Active Chronic neck pain Confirmed Active Depression Confirmed 10/2005 Active Dyslipidemia Confirmed Active WING (generalized anxiety disorder) Confirmed Active H/O suicide attempt Confirmed Active Hallucinations Confirmed Active Headache Confirmed Active H/O thyroidectomy Confirmed Active High triglycerides Confirmed Active Insomnia Confirmed Active Low back pain Confirmed 2002 Active Major depression Confirmed Active Migraine headache Confirmed Active Obese class I Confirmed Active Personality disorder Confirmed Active PTSD (post-traumatic stress disorder) Confirmed Active Major depression, recurrent, chronic Confirmed Active Diagnosis Diagnosis Type Effective Dates Health Status Clinical Service Informant Bipolar disorder Discharge Diagnosis 02/03/23 Insomnia Discharge Diagnosis 02/03/23 WING (generalized anxiety disorder) Discharge Diagnosis 02/03/23 Migraine headache Discharge Diagnosis 02/03/23 Dyslipidemia Discharge Diagnosis 02/03/23 Personality disorder Discharge Diagnosis 02/03/23 PTSD (post-traumatic stress disorder) Discharge Diagnosis 02/03/23 Asthma Discharge Diagnosis 02/03/23 Major depression, recurrent, chronic Discharge Diagnosis 02/03/23 Vital Signs Most recent to oldest [Reference Range]: 1 2 Height 171.00 cm (02/03/23 1:15 PM) 171.00 cm (02/03/23 1:09 PM) Weight 101.4 kg (02/03/23 1:09 PM) Oxygen Saturation [94-100 %] 100 % (02/03/23 1:09 PM) Pulse Rate [55-90 bpm] 102 bpm *H* (02/03/23 1:09 PM) Body Mass Index [18.5-24.99 kg/m2] 34.68 kg/m2 *>HHI* (02/03/23 1:09 PM) Blood Pressure [90-138/55-84 mm Hg] 146/ 94mm Hg *H* (02/03/23 1:15 PM) 166/108mm Hg *H* (02/03/23 1:09 PM) Blood pressure sites Arm, right (02/03/23 1:15 PM) Arm, right (02/03/23 1:09 PM) Weight Obtained Via Standing scale (02/03/23 1:09 PM) Social History Social History Type Response Smoking Status Current every day valentina franco; Other: 1/2 pack over 20 years; entered on: 03/28/18 Sex Female Note * Elsa Leija: PERFORM, SIGN, VERIFY Event Display: Patient Education/Instruction Authored Date: [id number] [facility] *[facility] Clinical Summary Name TERELL WAYNE Age 43 Years 1980 PCP Clovis AYERS, Ngozi Padilla PCP Visit Date 02/03/2023 12:58:00 Additional Instructions: Scheduled Appointments?? Future Appointments ?No Future Appointments Scheduled Follow-Up Instructions ?? Diagnosis Unspecified asthma, uncomplicated; Migraine, unspecified, not intractable, without status migrainosus; Bipolar disorder, unspecified; Insomnia, unspecified; Generalized anxiety disorder; Major depressive disorder, recurrent, unspecified; Personality disorder, unspecified; Hyperlipidemia, unspecified; Post-traumatic stress disorder, unspecified Medications: Please continue your medications until treatment is completed or stopped by your provider. Discuss any questions related to medications with your provider. Medications to Continue with No Changes These medications were not printed or sent to your pharmacy Albuterol (ProAir HFA 90 mcg/inh inhalation aerosol with adapter) 2 puff(s) Inhalation every 4 hours as needed NEEDED FOR WHEEZING/SHORTNESS OF BREATH. Refills: 5. Next Dose: amiTRIPTYLINE (amitriptyline 75 mg oral tablet) 1 tab(s) Oral Daily at Bedtime. Refills: 3. Next Dose: Ascorbic Acid (Vitamin C) Oral Daily. Next Dose: Atorvastatin (atorvastatin 20 mg oral tablet) 1 tab(s) Oral Daily. Refills: 1. Next Dose: Budesonide-Formoterol (budesonide-formoterol 160 mcg-4.5 mcg/inh inhalation aerosol with adapter) 2puff(s) Inhalation twice a day. in the morning and the evening use with spacer chamber rinse mouth and throat after use. Refills: 6. Next Dose: Diazepam (diazepam 5 mg oral tablet) 1 tab(s) Oral 3 times a day as needed as needed for anxiety for 30 Days. . Refills: 0. Next Dose: Durable Medical Equipment (Nebulizer/Compressor) Dx: Asthma (J45.909) Use with albuterol solution. Refills: 0. Next Dose: elderberry Next Dose: EPINEPHrine (EpiPen 2-Juan Jose 0.3 mg injectable kit) 0.3 Milligram Intramuscular once. may repeat if necessary. Refills: 1. Next Dose: Escitalopram (Lexapro 20 mg oral tablet) 1 tab(s) Oral Daily. Next Dose: Eszopiclone (eszopiclone 2 mg oral tablet) TAKE 1 TABLET BY MOUTH EVERYDAY AT BEDTIME. Next Dose: Gabapentin (gabapentin 400 mg oral capsule) TK 1 C PO BID Prescribed by ANDRIA Carias. Next Dose: galcanezumab (Emgality Prefilled Pen 120 mg/mL subcutaneous solution) 120 Milligram Subcutaneous Injection once. Maintenance Dose. Next Dose: Lamotrigine (lamotrigine 150 mg oral tablet) TAKE 1 TABLET BY MOUTH EVERY DAY. Next Dose: Miscellaneous Rx (MELATONIN 5 MG TABLET) TAKE 2 TABLETS BY MOUTH AT BEDTIME. Next Dose: Multivitamin (Childrens Chewable Multivitamins) 1 tab(s) Oral Daily. Next Dose: Multivitamin With Minerals (Airborne Gummies) Daily. Next Dose: Multivitamin With Minerals (Daily-Anju Weight Control) Oral Daily. Next Dose: Naproxen (naproxen 500 mg oral tablet) 1 tab(s) Oral twice a day for 30 Days. Refills: 0. Next Dose: Olanzapine (olanzapine 20 mg oral tablet) TAKE 2 TABLETS BY MOUTH EVERY DAY AT BEDTIME. Next Dose: Sebastian-3 Polyunsaturated Fatty Acids (Fish Oil) Oral. Next Dose: Omeprazole (omeprazole 20 mg oral enteric coated capsule) TAKE 1 CAPSULE BY MOUTH EVERY DAY 1/2 TO 1 HOUR PRIOR TO BREAKFAST. Refills: 0. Next Dose: Prazosin (prazosin 1 mg oral capsule) TAKE 1 CAPSULE BY MOUTH EVERYDAY AT BEDTIME. Next Dose: Prazosin (prazosin 2 mg oral capsule) 1 capsule Oral twice a day for 90 Days. Refills: 1. Next Dose: Quetiapine (QUEtiapine 400 mg oral tablet, extended release) 1 tab(s) Oral Daily in PM for 90 Days.do not crush or chew. Refills: 0. Next Dose: Rizatriptan (rizatriptan 10 mg oral tablet) TAKE 1 TABLET BY MOUTH ONCE NEEDED FOR MIGRAINE. MAYREPEAT IN 2 HOURS IF MIGRAINE PERSISTS. Refills: 1. Next Dose: Trazodone (traZODone 100 mg oral tablet) 1 tab(s) Oral twice a day. Refills: 1. Next Dose: Vitamin E Oral Daily. Next Dose: Allergy Info:?? Bee Stings; aspirin Medications Given This Visit Future Orders ?Renal Panel? Order Date:02/03/23?- Complete on or after?02/03/23 ?ALT? Order Date:02/03/23?- Complete on or after?02/03/23 ?Lipid Panel Non Fasting? Order Date:02/03/23?- Complete on or after?02/03/23 Vital Signs Height 171.00 cm Weight 101.4 kg BMI 34.68 kg/m2 Blood Pressure 146 mm Hg/94 mm Hg Temperature Pulse Rate 102 bpm Respiratory Rate 02 Sat Mode of Delivery 100 %/ You can now view a summary of your hospital visit from the comfort of your home through a free online portal called [email or web address]. [employer] is a website that allows you to securely view your medical information including discharge summary, medications and follow-up visits. ??You can alsosend a secure electronic message to your doctor???s office to request appointments, renew medications or just ask a question. You can enroll at [email or web address] or register during your next office visit. Disclaimer:?? The information provided is of a general nature and is intended to be used in conjunction with the recommendations and advice of your health care practitioner. ??Every effort has been made to ensure that the information provided is accurate and complete at the time it is provided to you however, as your needs change, or, as new ??information becomes available, different or additional instructions may be required. If you have questions, please consult with your primary care provider or pharmacist, as appropriate. ??This information is not intended to serve as substitution for assessment and evaluation by a qualified health care provider. If you do not have a primary care provider, you may find a [facility] provider by calling [facility] [employer] Link at [phone]. For information about the plan of care including goals and instructions for your diagnosis, please see the patient education orders section of this document. Patient Education Materials?? The content of this educational material or handout may have been modified, supplemented, or adapted from its original content and format to support your individualized medical care. Patient Care team information Care Team Personnel Name: Ngozi Brannon NP Position: S PCO Associate Professional Member Role: PCP Address: Address: [address] [place] [address] Drive 3rd floor [facility] [place] [address]- [place] Care Team Related Persons Name: RANDELL WAYNE Address: home [address] [place] [address] Name: FARIDA BORGES Name: BENJI WISE Address: home [address] [place] [address]
--- OUTSIDE RECORDS SUMMARY | 2023-07-27 18:55 | XMS_ITS | Continuity of Care Document ---
Author Name Unknown Organization [facility] Adult Address [address] [place] [address]- Care Team Providers Care Carrier Packer Name Role Phone Ngozi Brannon NP Primary Care Physician [phone] Encounter [facility] ACCT R [id number] Date(s): 10/20/22 - 02/17/23 [facility] [address] [place] [address]- Attending Physician: Not on Staff, Attending MD Allergies, Adverse Reactions, Alerts Substance Reaction Severity Status aspirin Rash Active Bee Stings Active Immunizations Given and Recorded Vaccine Date Status Refusal Reason [id number] 12y+ bivalent booster vax 09/09/22 Recorded SARS-CoV-2 (COVID-19) mRNA BNT-162b2 vac 03/24/21 Recorded SARS-CoV-2 (COVID-19) mRNA BNT-162b2 vac 03/03/21 Recorded pneumococcal 23-valent vaccine 12/27/18 Given tetanus/diphtheria/pertussis, acel(Tdap) 03/28/18 Given influenza virus vaccine, inactivated 1 07/15/10 Gi dale Diphth-Tetanus Toxoids Adsorbed(oldterm) 04/11/08 Given Hepatitis B Vaccine (old term) 2 04/11/08 Given 1Admin Note: VIS06/04/09 2Admin Note: #1 Medications Airborne Gummies Daily, 0 Refills, Maintenance, 02/21/21 10:58:00 EDT, Partial fill upon patient request if the prescription is for a schedule II opioid drug. Start Date: 02/21/21 Status: Ordered amitriptyline 75 mg oral tablet 1 tablet, By Mouth, Daily at bedtime, # 30 tablet, 3 Refills, Maintenance, 02/11/23 9:35:00 EDT, [id number], 171, cm, 02/03/23 13:15:00 EDT, Height Start Date: 02/11/23 Status: Ordered atorvastatin 20 mg oral tablet 1 tablet = 20 mg, By Mouth, Daily, # 90 tablet, 1 Refills, Maintenance, 10/06/22 14:37:00 EST, Tablet, [facility]/pharmacy #[id number], Partial fill upon patient request if [...] 1 Refills, Soft Stop, 05/15/20 10:44:00 EDT, [facility], [facility] Rx #[id number], 171, cm, 05/09/20 14:05:00 EDT, Height Start [...] 60 tablet, 0 Refills, Maintenance, 12/04/22 16:01:00 [facility], [facility] 25190, 171, cm, 08/21/22 11:00:00 EDT, Height Start [...] 90 capsule,0 Refills, Maintenance, 11/20/22 8:28:00 EST, [facility], 171, cm, 08/21/22 11:00:00 EDT, Height Start [...] each, Refills 5, Route to Pharmacy Electronically, [id number], [facility] 93[facility], 171, cm, 03/09/22 12:46:00 EDT, Height, 105.5, kg, 08/30/20 8:21:00 EST, Dry Weight Start Date: 03/14/22 Status: Ordered QUEtiapine 400 mg oral tablet, extended release 400 mg, 1, tablet, By Mouth, Daily in PM, do not crush or chew, # 90 tablet, Refills 0, Tot. Refills 0, Maintenance, 04/17/19 14:05:31 EDT, Route to Pharmacy Electronically, NCPDP_[id number], [facility] Rx #[id number] Start Date: 04/17/19 Stop Date: 07/16/19 Status: Ordered rizatriptan 10 mg oral tablet See Instructions, TAKE 1 TABLET BY MOUTH ONCE NEEDED FOR MIGRAINE. MAY REPEAT IN 2 HOURS IF MIGRAINE PERSISTS, # 12 tablet, 1 Refills, Maintenance, 11/20/22 8:28:00 EST, [facility] 565[facility], 171, cm, 08/21/22 11:00:00 EDT, Height Start Date: 11/20/22 Status: Ordered traZODone 100 mg oral tablet 1, tablet, By Mouth, 2 times a day, # 180 tablet, Refills 1, Route to Pharmacy Electronically, [facility], 171, cm, 03/09/22 12:46:00 EDT, Height, 105.5, [...] Active Major depression, recurrent, chronic Confirmed Active Social History Social History Type Response Smoking Status Current every day sm oker; Other: 1/2 pack over 20 years; entered on: 03/28/18 Sex Female Patient Care team information Care Team Personnel Name: Ngozi Brannon NP Position: S PCO Associate Professional Member Role: PCP Address: Address: [address] [place] [address] [address] [place] [address]- Care Team Related Persons Name: RANDELL WAYNE Address: [address] [place] [address] Name: FARIDA BORGES Name: BENJI WISE Address: [address] [place] [address]
--- OUTSIDE RECORDS SUMMARY | 2023-07-27 18:56 | XMS_ITS | Continuity of Care Document ---
Author Name Unknown Organization [facility] Adult Address [address] [place] [address]- Care Team Providers Care Manager Inpatient Name Role Phone Clovis AYERS, Ngozi Padilla Primary Care Physician [phone] Encounter [facility] Date(s): 06/09/23 - 07/09/23 [facility] [address] [place] [address]- Allergies, Adverse Reactions, Alerts Substance Reaction Severity Status aspirin Rash Active Bee Stings Active Immunizations Given and Recorded Vaccine Date Status Refusal Reason [id number] 12y+ bivalent booster vax 09/09/22 Recorded SARS-CoV-2 [...] bedtime, # 30 tablet, 3 Refills, Maintenance, 06/16/23 9:40:00 EDT, [facility], 171, cm, 02/03/23 13:15:00 EDT, Height Start Date: 06/16/23 Status: Ordered atorvastatin 20 mg oral tablet 1 tablet, By Mouth, Daily, # 90 tablet, 1 Refills, Maintenance, 03/22/23 8:05:00 EDT, [facility], 171, cm, 02/03/23 13:15:00 EDT, Height Start Date: 03/22/23 Status: Ordered budesonide-formoterol 160 mcg-4.5 mcg/inh inhalation [...] 1 Refills, Soft Stop, 05/15/20 10:44:00 EDT, [id number], 171, cm, 05/09/20 14:05:00 EDT, Height Start [...] day, # 60 tablet, 0 Refills, Maintenance, 06/30/23 7:24:00 EDT, [facility]/pharmacy #[id number], 171, cm, 02/03/23 13:15:00 EDT, Height Start Date: 06/30/23 Stop Date: 07/30/23 Status: Ordered Nebulizer/Compressor See Instructions, # 1 [...] 1 HOUR PRIOR TO BREAKFAST, # 90 capsule,1 Refills, Maintenance, 03/22/23 8:05:00 EDT, [facility] 95[facility], 171, cm, 02/03/23 13:15:00 EDT, Height Start Date: 03/22/23 Status: Ordered prazosin 1 mg oral capsule TAKE 1 CAPSULE BY MOUTH EVERYDAY AT BEDTIME Start Date: 02/21/21 Status: Ordered prazosin 2 mg oral capsule 1 capsule = 2 mg, By Mouth, 2 times a day, # 180 capsule, 1 Refills, Maintenance, 02/23/19 10:04:25EDT, Capsule Start Date: 02/23/19 Stop Date: 08/22/19 Status: Ordered QUEtiapine 400 mg oral tablet, extended release 400 mg, 1, tablet, By Mouth, Daily in PM, do not crush or chew, # 90 tablet, Refills 0, Tot. Refills 0, Maintenance, 04/17/19 14:05:31 EDT, Route to Pharmacy Electronically, NCPDP_[id number], [facility] Rx #[id number] Start Date: 04/17/19 Stop Date: 07/16/19 Status: Ordered rizatriptan 10 mg oral tablet See Instructions, TAKE 1 TABLET BY MOUTH ONCE NEEDED FOR MIGRAINE. MAY REPEAT IN 2 HOURS IF MIGRAINE PERSISTS, # 12 tablet, 1 Refills, Maintenance, 11/20/22 8:28:00 EST, [facility], 171, cm, 08/21/22 11:00:00 EDT, Height Start Date: 11/20/22 Status: Ordered traZODone 100 mg oral tablet 1, tablet, By Mouth, 2 times a day, # 180 tablet, Refills 1, Maintenance, 06/07/23 8:52:00 EDT, Route to Pharmacy Electronically, [facility] 7[facility]37, 171, cm, 02/03/23 13:15:00 EDT, Height Start Date: 06/07/23 Status: Ordered Ventolin HFA 108 mcg/inh inhalation aerosol with adapter 2 puffs, Inhalation, Every 6 hours, PRN NEEDED FOR WHEEZING/SHORTNESS OF BREATH, # 18 each, 2 Refills, Maintenance, 04/14/23 8:06:00 EDT, [facility]/pharmacy #[id number], 171, cm, 02/03/23 13:15:00 EDT, Height Start Date: 04/14/23 Status: Ordered Vitamin C By Mouth, Daily, [...] Associate Professional Member Role: PCP Address: Address: [address] [place] [address] [address]rd [place] [address]- Care Team Related Persons Name: RANDELL WAYNE Address: [address] [place] [address] Name: FARIDA BORGES Name: BENJI WISE Address: home [address] [place] [address]
--- OUTSIDE RECORDS SUMMARY | 2023-07-27 18:56 | XMS_ITS | Continuity of Care Document ---
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 Name Role Phone Clovis AYERS, Ngozi Padilla Primary Care Physician [phone] Encounter [facility] [place] Date(s): 02/04/23 - 03/06/23 [facility] [address] [place] [address]- Allergies, Adverse Reactions, Alerts Substance Reaction Severity Status aspirin Rash Active Bee Stings Active Immunizations Given and Recorded Vaccine Date Status Refusal Reason [id number] 12y+ bivalent booster vax 09/09/22 Recorded SARS-CoV-2 [...] tablet, 3 Refills, Maintenance, 02/11/23 9:35:00 EDT, [id number], 171, cm, 02/03/23 13:15:00 EDT, Height Start Date: 02/11/23 Status: Ordered atorvastatin 20 mg oral tablet 1 tablet = 20 mg, By Mouth, Daily, # 90 tablet, 1 Refills, Maintenance, 10/06/22 14:37:00 EST, Tablet, [facility]/pharmacy #[id number], Partial fill upon patient request if the [...] 1 Refills, Soft Stop, 05/15/20 10:44:00 EDT[id number], 171, cm, 05/09/20 14:05:00 EDT, Height Start [...] tablet, 0 Refills, Maintenance, 12/04/22 16:01:00 EST, [id number], 171, cm, 08/21/22 11:00:00 EDT, Height Start [...] 90 capsule,0 Refills, Maintenance, 11/20/22 8:28:00 EST, [id number], 171, cm, 08/21/22 11:00:00 EDT, Height Start [...] each, Refills 5, Route to Pharmacy Electronically, [id number], [id number], 171, cm, 03/09/22 12:46:00 EDT, Height, 105.5, kg, 08/30/20 8:21:00 EST, Dry Weight Start Date: 03/14/22 Status: Ordered QUEtiapine 400 mg oral tablet, extended release 400 mg, 1, tablet, By Mouth, Daily in PM, do not crush or chew, # 90 tablet, Refills 0, Tot. Refills 0, Maintenance, 04/17/19 14:05:31 EDT, Route to Pharmacy Electronically, [id number], [facility] Rx #[id number] Start Date: 04/17/19 Stop Date: 07/16/19 Status: Ordered rizatriptan 10 mg oral tablet See Instructions, TAKE 1 TABLET BY MOUTH ONCE NEEDED FOR MIGRAINE. MAY REPEAT IN 2 HOURS IF MIGRAINE PERSISTS, # 12 tablet, 1 Refills, Maintenance, 11/20/22 8:28:00 EST, [id number], 171, cm, 08/21/22 11:00:00 EDT, Height Start Date: 11/20/22 Status: Ordered traZODone 100 mg oral tablet 1, tablet, By Mouth, 2 times a day, # 180 tablet, Refills 1, Route to Pharmacy Electronically, [id number], 171, cm, 03/09/22 12:46:00 EDT, Height, 105.5, [...] Associate Professional Member Role: PCP Address: Address: [address] [facility] [address] [address] [place] [address]- Care Team Related Persons Name: RANDELL WAYNE Address: [address] [place] [address] Name: FARIDA BORGES Name: BENJI WISE Address: home [address] [place] [address]
[2023-07-27] MEDS: Diphth,Pertus(ACell),Tet Adult 0.5 ML SYRINGE IM (20:36)
[2023-07-27] MEDS: Lidocaine HCl 1 % MPF 5 ML VIAL INFILTRATI (21:25)
--- NOTE | 2023-07-27 22:26 | PC.NURSE ---
pt states to this RN I don't know what I am waiting for but I've been here way too long, I wanna go . This RN educated patient that we are still waiting for CT scan to come back and that it would be at least another 45 minutes. Pt unsatisfied with that answer, states I am gonna go home, kira been here way too long . RN educated patient on risks of leaving without completing treatment
== END 2023-07-27 22:38 | disposition left against medical advice (07) ==
PROVIDERS: Emergency Provider Emergency Medicine; PCP Internal Medicine
DX: S21.112A Laceration without foreign body of left front wall of thorax without penetration into thoracic cavity, initial encounter (principal); X99.1XXA Assault by knife, initial encounter; Y93.9 Activity, unspecified; Y92.9 Unspecified place or not applicable; Y99.9 Unspecified external cause status; F17.210 Nicotine dependence, cigarettes, uncomplicated
CPT/HCPCS: 71046; 71250; 90471; 90715; 99282; 99284